=== PATIENT | female | born 1965 ===

== ENCOUNTER 2017-10-15 11:19 | Emergency (ER) | payer OTHER ==
[2017-10-15 11:40] VITALS: BMI 39.9
[2017-10-15 11:43] VITALS: RESP 18; TEMP 98.2
--- NOTE | 2017-10-15 12:32 | C.PDOC ---
History Of Present Illness 51 yo female come in for evaluation of left hand thumb pain and mild swelling of hand gradually developed for past few days. Pt describes pain as localized, worsen with movement. Otherwise, pt denies fever, chills, known trauma or injury , denies weakness, sensory or vascular deficits to left hand. Pt i right hand dominant. Ambulate to Ed for evaluation, not in any apparent distress. Time Seen by Provider: 10/15/17 11:52 Chief Complaint (Nursing): Finger,Hand,&Wrist History Per: Patient Past Medical History Reviewed: Historical Data, Nursing Documentation, Vital Signs Vital Signs: Last Vital Signs Temp 98.2 F 10/15/17 11:41 Pulse 85 10/15/17 11:41 Resp 18 10/15/17 11:41 BP 131/79 10/15/17 11:41 Pulse Ox 100 10/15/17 11:41 - Medical History PMH: HTN Family History: States: No Known Family Hx - Social History Hx Alcohol Use: No Hx Substance Use: No - Immunization History Hx Tetanus Toxoid Vaccination: No Hx Influenza Vaccination: No Hx Pneumococcal Vaccination: No Review Of Systems Except As Marked, All Systems Reviewed And Found Negative. Constitutional: Negative for: Fever, Chills Musculoskeletal: Positive for: Hand Pain Skin: Negative for: Rash, Lesions, Bruising Neurological: Negative for: Weakness, Numbness Physical Exam - Physical Exam Appears: Well, Non-toxic, No Acute Distress Skin: Normal Color, Warm, No Rash, No Ecchymosis Extremity: Tenderness (over dorsal aspecr Left hand overl 1st MCPJ with mild nos edema, No erythema, no skin cahnges. FAROM of Left hand, no neurovascular deficits distally.), Capillary Refill (less than 2sec to Left hand), No Deformity Neurological/Psych: Oriented x3, Normal Speech, Normal Motor, Normal Sensation, Normal Reflexes ED Course And Treatment O2 Sat by Pulse Oximetry: 100 Pulse Ox Interpretation: Normal - Other Rad Left hand X-Ray: Interpreted by Me, Viewed By Me Interpretation: (+)mild DJD noted over 1st MCPJ, no acute fx or dislocation Progress Note: On re-eval, pt is afebrile, hemodynamicaly stable. Non-toxic. Left hand: exam c/w left 1st MCPJ arthragia r/o arthritis. No cellulitis. No deformity. FAROM, no neurovascular deficits. Xray review and c/w Left 1st DJD, no acute fx. Pt allergic to NSAIDs, Steroids offered with finger immobilization in aluminium splint, pt agrees. Pt advised and ref. to F/u with Hand specialist for further eval and tx. Disposition Counseled Patient/Family Regarding: Studies Performed, Diagnosis, Need For Followup, Rx Given - Disposition Referrals: Zaira Smith MD [Staff Provider] - Disposition: HOME/ ROUTINE Disposition Time: 12:30 Condition: STABLE Additional Instructions: LIght duty to left hand take medication as prescribed Follow up with Hand specialist in 2-3 days for re-evaluation. Return to ED if any worsening ro new changes. Prescriptions: Prednisone [Deltasone] 40 mg PO DAILY #6 tablet Instructions: Osteoarthritis (ED) - Clinical Impression Clinical Impression: Hand arthritis
[2017-10-15 13:02] VITALS: BP 128/83; PULSE 82; O2SAT 98
--- NOTE | 2017-10-15 13:09 | RAD ---
PROCEDURE: Left Hand Radiographs. HISTORY: PAIN COMPARISON: None. FINDINGS: BONES: 1 mm subcortical cyst versus erosion radial side 1st proximal phalanx and juxta-articular. First metacarpal head subcortical cyst 1 mm. No fracture. JOINTS: First metacarpal phalangeal joint arthrosis possible 1 mm erosion. First carpal metacarpal joint hypertrophic arthrosis SOFT TISSUES: Normal. OTHER FINDINGS: None. IMPRESSION: Subcortical cyst and/or 1 mm erosions - 1st digit as reported No fracture
== END 2017-10-15 13:01 | disposition home or self-care (01) ==
LOC: C.ER 11:19
DX: M19.042 Primary osteoarthritis, left hand (principal); I10 Essential (primary) hypertension